=== PATIENT | male | born 1945 | race Two or more races ===

== ENCOUNTER 2023-12-31 09:36 | Outpatient (AMB) | payer MEDICARE, MEDICAID, SELFPAY ==
--- NOTE | 2023-12-31 09:57 | PD.ORTHCLVIS ---
Vital signs 12/31/23 10:00 Height 1.68 m Height Method Stated Weight 83 kg Weight Measurement Method Estimated by Patient BMI 29.4 BP 113/63 Blood Pressure Source Automatic Cuff Blood Pressure Location Left Upper Arm Position Sitting Respiration 18 Pulse 86 Pulse Source Monitor Temp 97.4 F Temp Source Temporal Artery Scan Pulse Oximetry (%) 96 Oxygen Delivery Method Room Air Med/Allergies Allergies & Medications Allergies No Known Allergies Allergy (Verified 12/31/23 10:01) Medication Reconciliation cholecalciferol (vitamin D3) 1,250 mcg (50,000 unit) capsule 1,250 mcg PO QWEEK 11/05/23 [History Confirmed 12/31/23] diclofenac sodium 1 % topical gel (Arthritis Pain (diclofenac)) 2 g topical QID 11/05/23 [History Confirmed 12/31/23] ibuprofen 800 mg tablet 800 mg PO Q6H 11/05/23 [History Confirmed 12/31/23] acetaminophen 500 mg tablet (Acetaminophen Extra Strength) 1,000 mg (2 x 500 mg) PO Q6H PRN pain #90 tabs 12/22/23 [Rx Confirmed 12/31/23] aspirin 81 mg tablet,delayed release 81 mg PO BID #60 tabs 12/22/23 [Rx Confirmed 12/31/23] doxycycline hyclate 100 mg tablet 100 mg PO BID #14 tabs 12/22/23 [Rx Confirmed 12/31/23] gabapentin 300 mg capsule 300 mg PO .qhs #30 caps 12/22/23 [Rx Confirmed 12/31/23] oxycodone 5 mg tablet 5 mg PO Q6H PRN pain #28 tabs 12/22/23 [Rx Confirmed 12/31/23] sennosides 8.6 mg-docusate sodium 50 mg tablet (Senna-S) 1 tab-cap PO QDAY #30 tabs 12/22/23 [Rx Confirmed 12/31/23] Subjective Visit Visit for: follow up visit Immunization / Flu Flu Vaccine in the Last 12 Months: Yes Flu Vaccine Exclusion Criteria: Already Received History of Present Illness Chief complaint: 2 WEEK POST OP Date of 1st surgery (if applicable): 12/22/2023 Patient is doing well status post left total knee replacement. He is 2 weeks postop. He is working with therapy at home is using a walker Pain Pain level (0-10): 3 Pain duration: COMES AND GOES Pain quality: sharp Ambulatory data Ambulatory device: walker Treatments Improvement with previous injections: No Improvement with PT: No Improvement with NSAIDS: n/a Review of Systems Review of Systems: All systems negative unless otherwise noted in HPI. Exam Exam Patient is in no acute distress and is cooperative with the examination today. Breathing is nonlabored. Patient has a normal mood and affect. Bilateral extremities were evaluated and demonstrates sensation intact to light touch. Palpable pedal pulses are present. No significant edema is present. Bilateral hips were examined. The patient has no pain with log roll of the hips. Internal rotation to 30 degrees and external rotation to 30 degrees is painless. Negative FADIR. Right knee was examined today. The right knee is in reasonable alignment. RIncision is clean dry and intact Left knee incision is clean dry and intact. Range of motion 0 to 110 degrees Assessment and Plan Problem List (1) Arthritis of left knee: Status: Acute Plan: Patient is a pleasant 77-year-old male with significant left knee pain and left knee arthritis. He is doing well status post total knee replacement. We will see him in approximately 4 weeks with new x-rays. He should transition to outpatient therapy (2) Pain in left knee: Status: Acute Advanced Care Planning Discussion Advance care planning discussed with:: patient Office Procedures GNS Level of Care Nursing/Assessment Patient Status: Established Patient Nursing Assessment/Reassesment: Medication Reconciliation, Update PMH in EMR and Vital Signs Coordination of Care: Complex Care and Chronic Disease 1-5, Education Complex Pt/Fam, Consent,records obtained, informed consent, Ref for ancillary service, Results/Orders obtained and Staff clarify orders Special Needs: Language special needs Established Patient Charge Established Patient Point Assignment: 115 Established Patient Point Charge: EP Level 3 (80-115) Past Medical History Past Medical History Have you ever been diagnosed with any of the following: Neurological Problems Meningitis: Yes (2001) Seizures: No Cardiology Problems Congestive Heart Failure: No Respiratory Problems Chronic Obstructive Pulmonary Disease (COPD): No Smoking: No Smoking Cessation Counseling: No Smoking Exposure: No Tobacco Use: No Clubbing: No Stomache/Intestinal Problems Hepatitis: No Genital/Urinary Problems Renal Disease: No Benign Prostatic Hyperplasia: Yes Reproductive Problems Fibroids: No Musculoskeletal Problems Arthritis: Yes Fractures: Yes (left shoulder) Endocrine Problems Diabetes Mellitus Type 1: No Diabetes Mellitus Type 2: No Hypothyroidism: No Blood Problems Clotting Problems: No Other Problems Hospitalization: Yes (meningitis) Shingles: No Falls: No Blood Transfusions: No Blood Transfusion Reaction: No Anesthesia Reactions: No Organ Transplant: No Chemotherapy: No Radiation Therapy: No MRSA: No VRSA: No Vancomycin-Resistant Enterococci: No Human Immunodeficiency Virus (HIV): No Chicken Pox: No Measles: No Mumps: No Rubella ([place] Measles): No Pertussis: No Clostridium Difficile: No Cancer: No Surgical History Total Knee Replacement: Yes Hysterectomy: No
[2023-12-31 10:00] VITALS: BP 113/63; PULSE 86; RESP 18; TEMP 36.3; O2SAT 96; BMI 29.4
== END 2023-12-31 10:03 | disposition home or self-care (01) ==
LOC: HODSRG 09:36
PROVIDERS: PCP Physician Assistant; Referring Provider Physician Assistant; Supervising Provider Orthopaedic Surgery Adult Reconstructive Orthopaedic Surgery; Visit Provider Orthopaedic Surgery Adult Reconstructive Orthopaedic Surgery
DX: M17.12 Unilateral primary osteoarthritis, left knee (principal); M25.562 Pain in left knee; Z96.652 Presence of left artificial knee joint
CPT/HCPCS: 99213; G0463

== ENCOUNTER 2024-01-20 10:29 | Outpatient (AMB) | payer MEDICARE, MEDICAID, SELFPAY ==
[2024-01-20 10:52] VITALS: BP 134/76; PULSE 87; RESP 18; TEMP 36.4; O2SAT 97; BMI 30.5
--- NOTE | 2024-01-20 10:52 | ORTHONT_ITS ---
Vital signs 01/20/24 10:52 Height 1.68 m Height Method Stated Weight 86.268 kg Weight Measurement Method Standing Scale BMI 30.5 BP 134/76 H Blood Pressure Source Automatic Cuff Blood Pressure Location Left Upper Arm Position Sitting Respiration 18 Pulse 87 Pulse Source Monitor Temp 97.5 F Temp Source Temporal Artery Scan Pulse Oximetry (%) 97 Oxygen Delivery Method Room Air Med/Allergies Allergies & Medications Allergies No Known Allergies Allergy (Verified 01/20/24 10:54) Medication Reconciliation cholecalciferol (vitamin D3) 1,250 mcg (50,000 unit) capsule 1,250 mcg PO QWEEK 11/05/23 [History Confirmed 01/20/24] diclofenac sodium 1 % topical gel (Arthritis Pain (diclofenac)) 2 g topical QID 11/05/23 [History Confirmed 01/20/24] ibuprofen 800 mg tablet 800 mg PO Q6H 11/05/23 [History Confirmed 01/20/24] acetaminophen 500 mg tablet (Acetaminophen Extra Strength) 1,000 mg (2 x 500 mg) PO Q6H PRN pain #90 tabs 12/22/23 [Rx Confirmed 01/20/24] aspirin 81 mg tablet,delayed release 81 mg PO BID #60 tabs 12/22/23 [Rx Confirmed 01/20/24] doxycycline hyclate 100 mg tablet 100 mg PO BID #14 tabs 12/22/23 [Rx Confirmed 01/20/24] gabapentin 300 mg capsule 300 mg PO .qhs #30 caps 12/22/23 [Rx Confirmed 01/20/24] sennosides 8.6 mg-docusate sodium 50 mg tablet (Senna-S) 1 tab-cap PO QDAY #30 tabs 12/22/23 [Rx Confirmed 01/20/24] cyclobenzaprine 5 mg tablet 5 mg PO QHS PRN muscle spasm #60 tabs 12/31/23 [Rx Confirmed 01/20/24] oxycodone 5 mg tablet 5 mg PO Q6H PRN pain #28 tabs 12/31/23 [Rx Confirmed 01/20/24] Subjective Visit Visit for: follow up visit, post op #2 and knee (LEFT) Immunization / Flu Flu Vaccine in the Last 12 Months: Yes Flu Vaccine Exclusion Criteria: Already Received History of Present Illness Chief complaint: POST OP 1 MONTH Date of 1st surgery (if applicable): 12/22/2023 Patient is doing well status post left total knee replacement. He is 6 weeks postop. Pain Pain level (0-10): 0 Pain duration: COMES AND GOES Pain quality: sharp Ambulatory data Ambulatory device: none Treatments Improvement with previous injections: No Improvement with PT: No Improvement with NSAIDS: no Review of Systems Review of Systems: All systems negative unless otherwise noted in HPI. Exam Exam Patient is in no acute distress and is cooperative with the examination today. Breathing is nonlabored. Patient has a normal mood and affect. Bilateral extremities were evaluated and demonstrates sensation intact to light touch. Palpable pedal pulses are present. No significant edema is present. Bilateral hips were examined. The patient has no pain with log roll of the hips. Internal rotation to 30 degrees and external rotation to 30 degrees is painless. Negative FADIR. Right knee was examined today. The right knee is in reasonable alignment. RIncision is clean dry and intact Left knee incision is clean dry and intact. Range of motion 0 to 110 degrees Assessment and Plan Problem List (1) Arthritis of left knee: Status: Acute Plan: Patient is a pleasant 77-year-old male with significant left knee pain and left knee arthritis. He is doing well status post total knee replacement. He is doing well and has minimal pain We will see him in approximately 2 months routine follow-up. His postop x-rays look very (2) Pain in left knee: Status: Acute Advanced Care Planning Discussion Advance care planning discussed with:: patient Office Procedures GNS Level of Care Nursing/Assessment Patient Status: Established Patient Nursing Assessment/Reassesment: Medication Reconciliation, Update PMH in EMR and Vital Signs Coordination of Care: Complex Care and Chronic Disease 1-5, Education Complex Pt/Fam, Consent,records obtained, informed consent, Results/Orders obtained and Staff clarify orders Special Needs: Language special needs Established Patient Charge Established Patient Point Assignment: 95 Established Patient Point Charge: EP Level 3 (80-115) Past Medical History Past Medical History Have you ever been diagnosed with any of the following: Neurological Problems Meningitis: Yes (2001) Seizures: No Cardiology Problems Congestive Heart Failure: No Respiratory Problems Chronic Obstructive Pulmonary Disease (COPD): No Smoking: No Smoking Cessation Counseling: No Smoking Exposure: No Tobacco Use: No Clubbing: No Stomache/Intestinal Problems Hepatitis: No Genital/Urinary Problems Renal Disease: No Benign Prostatic Hyperplasia: Yes Reproductive Problems Fibroids: No Musculoskeletal Problems Arthritis: Yes Fractures: Yes (left shoulder) Endocrine Problems Diabetes Mellitus Type 1: No Diabetes Mellitus Type 2: No Hypothyroidism: No Blood Problems Clotting Problems: No Other Problems Hospitalization: Yes (meningitis) Shingles: No Falls: No Blood Transfusions: No Blood Transfusion Reaction: No Anesthesia Reactions: No Organ Transplant: No Chemotherapy: No Radiation Therapy: No MRSA: No VRSA: No Vancomycin-Resistant Enterococci: No Human Immunodeficiency Virus (HIV): No Chicken Pox: No Measles: No Mumps: No Rubella ([place]an Measles): No Pertussis: No Clostridium Difficile: No Cancer: No Surgical History Total Knee Replacement: Yes Hysterectomy: No
== END 2024-01-20 11:13 | disposition home or self-care (01) ==
LOC: HODSRG 10:29
PROVIDERS: PCP Physician Assistant; Referring Provider Physician Assistant; Supervising Provider Orthopaedic Surgery Adult Reconstructive Orthopaedic Surgery; Visit Provider Orthopaedic Surgery Adult Reconstructive Orthopaedic Surgery
DX: M17.12 Unilateral primary osteoarthritis, left knee (principal); M25.562 Pain in left knee; Z96.652 Presence of left artificial knee joint
CPT/HCPCS: 99213; G0463

== ENCOUNTER 2024-05-05 13:05 | Outpatient (AMB) | payer MEDICARE, MEDICAID, SELFPAY ==
--- NOTE | 2024-05-05 13:12 | ORTHONT_ITS ---
Vital signs 05/05/24 13:13 Height 1.68 m Height Method Stated Weight 89.896 kg Weight Measurement Method Standing Scale BMI 31.8 BP 132/74 H Blood Pressure Source Automatic Cuff Blood Pressure Location Left Upper Arm Position Sitting Respiration 18 Pulse 57 L Pulse Source Monitor Temp 98.0 F Temp Source Temporal Artery Scan Pulse Oximetry (%) 98 Oxygen Delivery Method Room Air Med/Allergies Allergies & Medications Allergies No Known Allergies Allergy (Verified 05/05/24 13:13) Medication Reconciliation cholecalciferol (vitamin D3) 1,250 mcg (50,000 unit) capsule 1,250 mcg PO QWEEK 11/05/23 [History Confirmed 05/05/24] diclofenac sodium 1 % topical gel (Arthritis Pain (diclofenac)) 2 g topical QID 11/05/23 [History Confirmed 05/05/24] ibuprofen 800 mg tablet 800 mg PO Q6H 11/05/23 [History Confirmed 05/05/24] acetaminophen 500 mg tablet (Acetaminophen Extra Strength) 1,000 mg (2 x 500 mg) PO Q6H PRN pain #90 tabs 12/22/23 [Rx Confirmed 05/05/24] aspirin 81 mg tablet,delayed release 81 mg PO BID #60 tabs 12/22/23 [Rx Confirmed 05/05/24] doxycycline hyclate 100 mg tablet 100 mg PO BID #14 tabs 12/22/23 [Rx Confirmed 05/05/24] gabapentin 300 mg capsule 300 mg PO .qhs #30 caps 12/22/23 [Rx Confirmed 05/05/24] sennosides 8.6 mg-docusate sodium 50 mg tablet (Senna-S) 1 tab-cap PO QDAY #30 tabs 12/22/23 [Rx Confirmed 05/05/24] cyclobenzaprine 5 mg tablet 5 mg PO QHS PRN muscle spasm #60 tabs 12/31/23 [Rx Confirmed 05/05/24] oxycodone 5 mg tablet 5 mg PO Q6H PRN pain #28 tabs 12/31/23 [Rx Confirmed 05/05/24] Exam Exam Patient is in no acute distress and is cooperative with the examination today. Breathing is nonlabored. Patient has a normal mood and affect. Bilateral extremities were evaluated and demonstrates sensation intact to light touch. Palpable pedal pulses are present. No significant edema is present. Bilateral hips were examined. The patient has no pain with log roll of the hips. Internal rotation to 30 degrees and external rotation to 30 degrees is painless. Negative FADIR. Right knee was examined today. The right knee is in reasonable alignment. RIncision is clean dry and intact Left knee incision is clean dry and intact. Range of motion 0 to 110 degrees Assessment and Plan Problem List (1) Arthritis of left knee: Status: Acute Plan: Patient is a pleasant 77-year-old male with significant left knee pain and left knee arthritis. He is doing well status post total knee replacement. He is doing well and has minimal pain He iis 6 months postop and he looks good (2) Pain in left knee: Status: Acute Advanced Care Planning Discussion Advance care planning discussed with:: patient Office Procedures GNS Level of Care Nursing/Assessment Patient Status: Established Patient Nursing Assessment/Reassesment: Medication Reconciliation, Update PMH in EMR and Vital Signs Coordination of Care: Complex Care and Chronic Disease 1-5, Education Complex Pt/Fam, Consent,records obtained, informed consent, Results/Orders obtained and Staff clarify orders Special Needs: Language special needs Established Patient Charge Established Patient Point Assignment: 95 Established Patient Point Charge: EP Level 3 (80-115) Questionairres Past Medical History Past Medical History Have you ever been diagnosed with any of the following: Neurological Problems Meningitis: Yes (2001) Seizures: No Cardiology Problems Congestive Heart Failure: No Respiratory Problems Chronic Obstructive Pulmonary Disease (COPD): No Smoking: No Smoking Cessation Counseling: No Smoking Exposure: No Tobacco Use: No Clubbing: No Stomache/Intestinal Problems Hepatitis: No Genital/Urinary Problems Renal Disease: No Benign Prostatic Hyperplasia: Yes Reproductive Problems Fibroids: No Musculoskeletal Problems Arthritis: Yes Fractures: Yes (left shoulder) Endocrine Problems Diabetes Mellitus Type 1: No Diabetes Mellitus Type 2: No Hypothyroidism: No Blood Problems Clotting Problems: No Other Problems Hospitalization: Yes (meningitis) Shingles: No Falls: No Blood Transfusions: No Blood Transfusion Reaction: No Anesthesia Reactions: No Organ Transplant: No Chemotherapy: No Radiation Therapy: No MRSA: No VRSA: No Vancomycin-Resistant Enterococci: No Human Immunodeficiency Virus (HIV): No Chicken Pox: No Measles: No Mumps: No Rubella ([place] Measles): No Pertussis: No Clostridium Difficile: No Cancer: No Surgical History Total Knee Replacement: Yes Hysterectomy: No Subjective Immunization / Flu Flu Vaccine in the Last 12 Months: No Flu Vaccine Exclusion Criteria: Already Received History of Present Illness Chief complaint: left total knee replacement Patient is doing well s/p L TKA. He is doing well and has minimnal pain. He is gardening and is on ladders. Review of Systems Review of Systems: All systems negative unless otherwise noted in HPI.
--- NOTE | 2024-05-05 13:12 | ORTHONT_ITS ---
Vital signs 05/05/24 13:13 Height 1.68 m Height Method Stated Weight 89.896 kg Weight Measurement Method Standing Scale BMI 31.8 BP 132/74 H Blood Pressure Source Automatic Cuff Blood Pressure Location Left Upper Arm Position Sitting Respiration 18 Pulse 57 L Pulse Source Monitor Temp 98.0 F Temp Source Temporal Artery Scan Pulse Oximetry (%) 98 Oxygen Delivery Method Room Air Med/Allergies Allergies & Medications Allergies No Known Allergies Allergy (Verified 05/05/24 13:13) Medication Reconciliation cholecalciferol (vitamin D3) 1,250 mcg (50,000 unit) capsule 1,250 mcg PO QWEEK 11/05/23 [History Confirmed 05/05/24] diclofenac sodium 1 % topical gel (Arthritis Pain (diclofenac)) 2 g topical QID 11/05/23 [History Confirmed 05/05/24] ibuprofen 800 mg tablet 800 mg PO Q6H 11/05/23 [History Confirmed 05/05/24] acetaminophen 500 mg tablet (Acetaminophen Extra Strength) 1,000 mg (2 x 500 mg) PO Q6H PRN pain #90 tabs 12/22/23 [Rx Confirmed 05/05/24] aspirin 81 mg tablet,delayed release 81 mg PO BID #60 tabs 12/22/23 [Rx Confirmed 05/05/24] doxycycline hyclate 100 mg tablet 100 mg PO BID #14 tabs 12/22/23 [Rx Confirmed 05/05/24] gabapentin 300 mg capsule 300 mg PO .qhs #30 caps 12/22/23 [Rx Confirmed 05/05/24] sennosides 8.6 mg-docusate sodium 50 mg tablet (Senna-S) 1 tab-cap PO QDAY #30 tabs 12/22/23 [Rx Confirmed 05/05/24] cyclobenzaprine 5 mg tablet 5 mg PO QHS PRN muscle spasm #60 tabs 12/31/23 [Rx Confirmed 05/05/24] oxycodone 5 mg tablet 5 mg PO Q6H PRN pain #28 tabs 12/31/23 [Rx Confirmed 05/05/24] Assessment and Plan Advanced Care Planning Discussion Advance care planning discussed with:: patient Office Procedures GNS Level of Care Nursing/Assessment Patient Status: Established Patient Nursing Assessment/Reassesment: Medication Reconciliation, Update PMH in EMR and Vital Signs Coordination of Care: Complex Care and Chronic Disease 1-5, Education Complex Pt/Fam, Consent,records obtained, informed consent, Results/Orders obtained and Staff clarify orders Special Needs: Language special needs Established Patient Charge Established Patient Point Assignment: 95 Established Patient Point Charge: EP Level 3 (80-115) MA Intake Visit Data Collection New Patient or Established: Established Patient (seen at [facility] within 3 years) Reason for Visit:: 6 WEEK POST OP Seen by Clinical Staff ONLY (RN/MA): No Hospital Admissions Clerk Required: Yes PCP or OBGYN visit in last 3 months: Yes Hx Now: No Do You Feel Safe at Home: Yes Authorities Contacted: N/A Questionairres Past Medical History Past Medical History Have you ever been diagnosed with any of the following: Neurological Problems Meningitis: Yes (2001) Seizures: No Cardiology Problems Congestive Heart Failure: No Respiratory Problems Chronic Obstructive Pulmonary Disease (COPD): No Smoking: No Smoking Cessation Counseling: No Smoking Exposure: No Tobacco Use: No Clubbing: No Stomache/Intestinal Problems Hepatitis: No Genital/Urinary Problems Renal Disease: No Benign Prostatic Hyperplasia: Yes Reproductive Problems Fibroids: No Musculoskeletal Problems Arthritis: Yes Fractures: Yes (left shoulder) Endocrine Problems Diabetes Mellitus Type 1: No Diabetes Mellitus Type 2: No Hypothyroidism: No Blood Problems Clotting Problems: No Other Problems Hospitalization: Yes (meningitis) Shingles: No Falls: No Blood Transfusions: No Blood Transfusion Reaction: No Anesthesia Reactions: No Organ Transplant: No Chemotherapy: No Radiation Therapy: No MRSA: No VRSA: No Vancomycin-Resistant Enterococci: No Human Immunodeficiency Virus (HIV): No Chicken Pox: No Measles: No Mumps: No Rubella ([place] Measles): No Pertussis: No Clostridium Difficile: No Cancer: No Surgical History Total Knee Replacement: Yes Hysterectomy: No Subjective Visit Visit for: follow up visit Immunization / Flu Flu Vaccine in the Last 12 Months: No Flu Vaccine Exclusion Criteria: No Exclusion Criteria Pain Pain level (0-10): 0 Ambulatory data Ambulatory device: none Treatments Improvement with previous injections: No Improvement with PT: No Improvement with NSAIDS: no Review of Systems Review of Systems: All systems negative unless otherwise noted in HPI.
[2024-05-05 13:13] VITALS: BP 132/74; PULSE 57; RESP 18; TEMP 36.7; O2SAT 98; BMI 31.8
== END 2024-05-05 13:15 | disposition home or self-care (01) ==
LOC: HODSRG 13:05
PROVIDERS: PCP Physician Assistant; Referring Provider Physician Assistant; Supervising Provider Orthopaedic Surgery Adult Reconstructive Orthopaedic Surgery; Visit Provider Orthopaedic Surgery Adult Reconstructive Orthopaedic Surgery
DX: M25.562 Pain in left knee (principal); Z96.652 Presence of left artificial knee joint
CPT/HCPCS: 99213; G0463

== ENCOUNTER → 2024-05-05 | Outpatient (CLI) | payer MEDICARE, MEDICAID, SELFPAY ==
--- NOTE | 2024-05-05 13:46 | XR_ITS ---
Examination: Left knee 4 views TECHNIQUE: AP oblique lateral axial left knee 4 views, standing IMPRESSION: Total left knee with Exam date and time: May 15, 2024 1406 hours INDICATIONS: Left knee pain beginning November 2023 FINDINGS: Moderate osteopenia Total left knee arthroplasty No loosening of the prosthetic components No patellar dislocation IMPRESSION: Total left knee arthroplasty with satisfactory alignment
== END | disposition home or self-care (01) ==
PROVIDERS: PCP Physician Assistant; Referring Provider Orthopaedic Surgery Adult Reconstructive Orthopaedic Surgery; Visit Provider Orthopaedic Surgery Adult Reconstructive Orthopaedic Surgery
DX: M25.562 Pain in left knee (principal); Z96.652 Presence of left artificial knee joint
CPT/HCPCS: 73564